=== PATIENT | female | born 1990 | race Caucasian/White ===

== ENCOUNTER → 2016-08-09 | Outpatient (CLI) | payer BC ==
--- NOTE | 2016-08-09 19:10 | US ---
EXAMINATION TYPE: US OB >= 14 wk fetus DATE OF EXAM: 08/09/2016 5:15 PM COMPARISON: None CLINICAL HISTORY: Pelvic pain in , assess for ectopic; UTI TECHNIQUE: Transabdominal (TA) GESTATIONAL AGE / DATING Physician Established: not established Dates by LMP: (14 weeks/6 days) EDC: 02/01/2017 Dates by First Scan: today Dates by Current Scan: (15 weeks/2 days) EDC: 01/29/2017 SURVEY IUP: Single PLACENTA: Posterior PREVIA: Marginal, but is early 2nd trimester SHERRY: 10.7 cm Normal CERVICAL LENGTH (transabdominal: norm > 3.0cm): 3.2 cm BIOMETRY PRESENTATION: Breech LIE: Transverse with head maternal right BPD: 3.0 cm 15 weeks / 3 days HC: 10.8 cm 15 weeks / 1 day AC: 8.7 cm 15 weeks / 0 days FL: 1.5 cm 14 weeks / 3 days ESTIMATED WEIGHT IN GRAMS: 106.3 grams ESTIMATED WEIGHT IN LBS/OZS: 0 lbs. 4 oz. WEIGHT PERCENTAGE BASED ON ESTABLISHED DATES: 31.5% HC/AC: 1.24 Normal FL/AC: 17.3 Normal HEART RATE: 151 bpm RHYTHM: Normal Findings called to CIRILO Dalal at [facility]. IMPRESSION: SINGLE, LIVE, IUP, 15 WEEKS/2 DAYS, EDC: 01/29/2017, HR 151BPM.
== END | disposition home or self-care (01) ==
LOC: RADUSMAIN 16:28
PROVIDERS: ATTEND Nurse Practitioner Family
DX: N80.9 Endometriosis, unspecified (principal); Z33.1 Pregnant state, incidental; R10.2 Pelvic and perineal pain
CPT/HCPCS: 76805